=== PATIENT | female | born 1990 | race Caucasian/White ===

== ENCOUNTER → 2018-04-10 | Outpatient (REF) ==
[~2018-04-10] MED LIST: ANTI-DEPRESSANT; AUG500 PO; AZIT500T47 PO; CEP500 PO; CYC10 PO; CYCL10TA29 PO; DOXY-228 PO; ETON68IM2 SQ; FLU100 PO; GUALA600 PO; IBU600 PO; KET10 PO; LOR5 PO; LOR5/325 PO; METHY10 PO; NIT100 PO; NO MEDS; NO ROUTINE MEDS; OND8 PO; ONDA4TAB PO; PER PO; PRE20 PO; PREN-67 PO; VALA100062 PO
--- NOTE | 2018-04-10 13:17 | RADIOLOGY IMAGING REPORT ---
FACILITY: [facility] PATIENT NAME: Amanda Reinoso : 1990 MR: [id number] V: [id number] EXAM DATE: ORDERING PHYSICIAN: ROHINI MARINELLI TECHNOLOGIST: Location: [facility] Patient: Amanda Reinoso : 1990 Visit/Account:[id number] Date of Sevice: 04/10/2018 Technique: LUMBAR SPINE 2 OR 3 VIEW HISTORY: Chronic back pain COMPARISON: None available FINDINGS: 5 nonrib-bearing lumbar type vertebral bodies are present. There is no acute fracture. Mi nimal intervertebral disc space narrowing is noted at L3-L4, L4-L5 and L5-S1. There is corresponding endplate osteophytosis at these respective levels. The vertebral body heights are maintained. IMPRESSION: 1. Mild degenerative changes as described above. Report Dictated By: Eric Iglesias DO at 04/10/2018 1:12 PM Report E-Signed By: Eric Iglesias DO at 04/10/2018 1:13 PM WSN:[id number]
== END ==
LOC: RAD 11:47
PROVIDERS: ATTEND Orthopaedic Surgery Orthopaedic Surgery of the Spine
DX: M54.5 Low back pain (principal)
CPT/HCPCS: 72100